=== PATIENT | male | born 2000 ===

== ENCOUNTER 2019-04-21 15:15 | Emergency (ER) | payer OTHER ==
--- NOTE | 2019-04-21 15:45 | EDM.PDOC ---
ED HPI GENERAL MEDICAL PROBLEM - General Stated Complaint: CLEARANCE Time Seen by Provider: 04/21/19 15:30 Source of Information: Reports: Patient History Limitations: Reports: No Limitations - History of Present Illness INITIAL COMMENTS - FREE TEXT/NARRATIVE: Pt presents from the long-term. Pt was drinking a red elixir for "protection". This elixir is made from a seed of a plant pt states it comes from [place]. Will not elaborate any further. Onset: Today - Related Data Allergies Allergy/AdvReac Type Severity Reaction Status Date / Time No Known Allergies Allergy Verified 04/21/19 16:19 Home Meds: Home Meds . [No Known Home Meds] 04/21/19 [History] ED ROS GENERAL - Review of Systems Review Of Systems: See Below Constitutional: Reports: No Symptoms HEENT: Reports: No Symptoms Respiratory: Reports: No Symptoms Cardiovascular: Reports: No Symptoms GI/Abdominal: Reports: No Symptoms : Reports: No Symptoms Musculoskeletal: Reports: No Symptoms Skin: Reports: No Symptoms Neurological: Reports: No Symptoms Psychiatric: Reports: No Symptoms Hematologic/Lymphatic: Reports: No Symptoms Immunologic: Reports: No Symptoms ED EXAM, GENERAL - Physical Exam Exam: See Below Free Text/Narrative:: Pt with no other complaints. States he needs his elixir for religion / protection properties. Exam Limited By: No Limitations General Appearance: Alert, WD/WN, No Apparent Distress Eye Exam: Bilateral Eye: PERRL Ears: Normal External Exam Nose: Normal Inspection Throat/Mouth: Normal Inspection Head: Atraumatic, Normocephalic Neck: Normal Inspection Respiratory/Chest: No Respiratory Distress Cardiovascular: Normal Peripheral Pulses GI/Abdominal: Normal Bowel Sounds Extremities: Normal Inspection Neurological: Alert, Oriented Skin Exam: Warm, Dry, Intact Course - Vital Signs Last Recorded V/S: Last Vital Signs Temp 37.3 C 04/21/19 15:15 Pulse 107 H 04/21/19 15:15 Resp 20 04/21/19 15:15 BP 140/90 04/21/19 15:15 Pulse Ox 97 04/21/19 15:15 - Orders/Labs/Meds Orders: Active Orders 24 hr Category Date Time Status URINE DRUG SCREEN,POC [POC] Stat Lab 04/21/19 15:55 Ordered Departure - Departure Time of Disposition: 16:53 Disposition: Home, Self-Care 01 Clinical Impression: Examination - Discharge Information Care Plan Goals: Monitored unit, for the next 24 hrs. No elixir. - My Orders Last 24 Hours: My Active Orders 04/21/19 15:55 URINE DRUG SCREEN,POC [POC] Stat - Assessment/Plan Last 24 Hours: My Active Orders 04/21/19 15:55 URINE DRUG SCREEN,POC [POC] Stat
== END 2019-04-21 17:00 | disposition home or self-care (01) ==
LOC: VM.ED 15:15
DX: Z00.00 Encounter for general adult medical examination without abnormal findings (principal)
CPT/HCPCS: 99283